=== PATIENT | male | born 1945 | race Caucasian/White ===

== ENCOUNTER → 2023-01-04 08:04 | Outpatient (BNVA) | payer MEDICARE, SELFPAY | PROVIDERS: Family Provider Family Medicine; PCP Family Medicine; Visit Provider Nurse Practitioner Family | DX: C44.519 Basal cell carcinoma of skin of other part of trunk (principal); C44.712 Basal cell carcinoma of skin of right lower limb, including hip; C44.719 Basal cell carcinoma of skin of left lower limb, including hip | CPT/HCPCS: 99204 ==

== ENCOUNTER 2023-01-29 16:06 | Outpatient (CLI) | payer MEDICARE, SELFPAY ==
[2023-01-29 16:57] LABS: Alanine Aminotransferase 16 U/L (0-41); Alkaline Phosphatase 87 U/L (40-130); Anion Gap 13.3 (5-19); Aspartate Amino Transferase 27 U/L (0-40); Blood Urea Nitrogen 28 mg/dL (8-23); Carbon Dioxide 24 mmol/L (22-29); Chloride 108 mmol/L (98-107); Creatine Phosphokinase 221 U/L (39-308); Globulin 2.7 g/dL (1.3-4.6); Glucose 95 mg/dL (65-115); Osmolality Calculated 297 mOsm/kg (285-295); Potassium 4.3 mmol/L (3.5-5.1); Sodium 141 mmol/L (136-145); Total Bilirubin 0.4 mg/dL (0.15-1.2); Total Protein 6.7 g/dL (6.6-8.7)
[2023-01-29 17:03] LABS: Basophils # 0.1 10^3/uL (0.0-0.1); Basophils % 0.7 %; Eosinophils # 0.1 10^3/uL (0.0-0.8); Eosinophils % 1.7 %; Hematocrit 41.6 % (42.0-52.0); Lymphocytes # 1.5 10^3/uL (0.8-4.8); Lymphocytes % 19.8 %; Mean Corpuscular HGB Conc 33.7 g/dL (30.0-36.0); Mean Corpuscular Hemoglobin 32.5 pg (28.0-34.0); Mean Corpuscular Volume 96.5 fl (80-94); Mean Platelet Volume 10.1 fL (7.4-10.4); Monocytes # 0.5 10^3/uL (0.2-0.9); Monocytes % 6.3 %; Neutrophils # 5.38 10^3/uL (1.8-7.7); Neutrophils % 71.1 %; Nucleated Red Blood Cells % 0 %; Platelet Count 246 10^3/cmm (130-400); Red Blood Count 4.31 10^6/uL (4.1-5.3); White Blood Count 7.6 10^3/uL (4.0-10.0)
== END 2023-01-29 16:07 | disposition home or self-care (01) ==
PROVIDERS: PCP Family Medicine; Visit Provider Dermatology
DX: C44.519 Basal cell carcinoma of skin of other part of trunk (principal); I87.2 Venous insufficiency (chronic) (peripheral); L40.0 Psoriasis vulgaris; W89.8XXA Exposure to other man-made visible and ultraviolet light, initial encounter
CPT/HCPCS: 36415; 80053; 82550; 85025; 99214

== ENCOUNTER 2023-03-13 12:22 | Emergency (ER) | payer MEDICARE, SELFPAY ==
[2023-03-13 12:33] VITALS: BP 128/80; PULSE 79; RESP 16; O2SAT 98; BMI 22.8
--- NOTE | 2023-03-13 12:51 | ED_ITS ---
HPI - Wound/Laceration General: Chief Complaint: Wound/Laceration Stated Complaint: lip lac Time Seen by Provider: 03/13/23 12:45 Source: patient Mode of arrival: ambulatory Limitations: no limitations History of Present Illness: Patient is a nice 78-year-old male who presents to ED today for evaluation of a lip laceration. Patient states just prior to arrival he tripped and fell and struck his lip on the floor. Last tetanus is unknown. Denies any dental injuries. He denies LOC. He is not having a headache or neck pain. He is not on anticoagulation. Onset (ago): hour(s) Location: face (lip) Place: home Patient tetanus UTD: No Context: accidental Associated symptoms: Reports no associated symptoms; Denies nausea or vomiting Review of Systems Eyes: Denies: change in vision, blurry vision, floaters or seeing flashes ENMT: Reports: other (lip laceration) Card: Denies: chest pain, palpitations or lightheadedness Resp: Denies: dyspnea GI: Denies: nausea or vomiting Musc: Denies: neck pain Neuro: Denies: headache(s), numbness in extremities, weakness in extremities, sensory changes, difficulty walking, frequent falls, dizziness or confusion Physical Exam Const: COMMON NORMALS: no acute distress, average body habitus, patient oriented x3, no limitations, healthy appearing, alert and well nourished GENERAL APPEARANCE: cooperative ORIENTATION/CONSCIOUSNESS: Yes awake, Yes oriented to person, Yes oriented to place and Yes oriented to time HENMT: COMMON NORMALS: normocephalic and atraumatic HEAD & SCALP: normal to inspection, normocephalic and atraumatic FACE & SINUS: normal facial exam MOUTH: other (no dental injuries noted; few small puncture prince lower inner lip ) MOUTH IMAGES: 1. gaping laceration noted to lower dry vermilion; 1.25cm Eye: GENERAL EYE: appearance normal, both eyes and all related structures Neck/C-Spine: COMMON NORMALS: full ROM CERVICAL SPINE: No Cervical spine tenderness Neuro: COTY COMA SCALE: document GCS findings Coty coma scale eye opening: Spontaneous Coty coma scale verbal response: Orientated [place] coma scale motor response: Obey commands Coty coma scale total score: 15 COMMON NORMALS: patient oriented x3, CN's II-XII intact bilaterally, moves all extremities, no focal motor deficits, no sensory deficits noted and gait normal SENSORIUM/ORIENTATION: Yes alert, Yes oriented to person, Yes oriented to place and Yes oriented to time Procedures Laceration Laceration 1: Site: lip Size (cm): 1.25 Description: linear Depth: simple, single layer Local Anesthetic: lidocaine 1% Amount of anesthesia used (mL): 0.75 Pre-repair: wound explored and irrigated extensively Skin layer closed with: other (chromic gut) Size (cm): 5-0 Number of sutures: 3 Technique: simple, interrupted Course Vital Signs: Vital signs: Vital Signs Pulse Rate 79 03/13/23 12:33 Respiratory Rate 16 03/13/23 12:33 Blood Pressure 128/80 03/13/23 12:33 Pulse Oximetry 98 03/13/23 12:33 Oxygen Delivery Me thod Room Air 03/13/23 12:33 MDM - Wound/Laceration Medical Decision Making Patient with a wound to the lower dry vermilion that was gaping. This was repaired as documented. Cosmetic outcome was good. He has a few small lower wet vermilion puncture wounds that do not require repair. He will be placed on antibiotics. Sutures will need to be removed in 5 to 7 days. Return ED precautions given. Wound care/infection precautions discussed. Discharge Plan Discharge Patient Disposition: Home Clinical Impression: Laceration of lip Qualifiers: Encounter type: initial encounter Qualified Code(s): S01.511A - Laceration without foreign body of lip, initial encounter Condition: Stable Prescriptions: New amoxicillin-pot clavulanate 875-125 mg tablet 1 tab PO BID Qty: 14 0RF Discharge Orders: Discharge ED (Routine); Ordered 03/13/23 Ordered By: Gladis Bella Referrals: Dianna Piper DO [Primary Care Provider] - Patient Instructions: Laceration (DC) Activity Restrictions/Additional Instructions: Keep wound/laceration clean with warm soap and water twice daily. Monitor for signs of infection such as redness, swelling, increased pain, or drainage. Please seek medical re-evaluation if these occur. If you received sutures today these will need to be removed (unless you were told by the provider that they are absorbable). The provider should have discussed with you the length of time until removal-5 TO 7 DAYS. You may return to the emergency department for this service. Rinse mouth with water every time after eating. Coding Level of Care Code ED Psychiatric Aides Teacher for Chg Fwd
[2023-03-13] MEDS: lidocaine 1% INJ 10 mL (per mL) INJECTION (13:52)
[2023-03-13] MEDS: tetanus-dipt-pertussis 0.5 mL SDV IM (13:52)
== END 2023-03-13 14:05 | disposition home or self-care (01) ==
PROVIDERS: Emergency Provider Physician Assistant; PCP Family Medicine
DX: S01.511A Laceration without foreign body of lip, initial encounter (principal); W01.0XXA Fall on same level from slipping, tripping and stumbling without subsequent striking against object, initial encounter
CPT/HCPCS: 90471; 90715; 99283

== ENCOUNTER 2023-04-01 16:40 | Outpatient (CLI) | payer MEDICARE, SELFPAY ==
--- NOTE | 2023-04-01 16:47 | XRR_ITS ---
PROCEDURE INFORMATION: Exam: XR Chest Exam date and time: 04/01/2023 4:53 PM Age: 78 years old Clinical indication: Shortness of breath; Patient HX: HX if skin cancer; Additional info: SOB TECHNIQUE: Imaging protocol: Radiologic exam of the chest. Views: 2 views. COMPARISON: No relevant prior studies available. FINDINGS: Lungs: The lungs are hyperinflated with probable emphysema. The lungs are clear. No consolidation. Pleural spaces: Unremarkable. No pleural effusion. No pneumothorax. Heart/Mediastinum: Unremarkable. No cardiomegaly. Bones/joints: Mild curvature and degenerative changes of the spine. No acute fracture. XR/XR chest 2V* [id number] IMPRESSION: No acute findings.
== END 2023-04-01 16:41 | disposition home or self-care (01) ==
LOC: RAD 16:43
PROVIDERS: PCP Family Medicine; Visit Provider Dermatology
DX: C44.519 Basal cell carcinoma of skin of other part of trunk (principal)
CPT/HCPCS: 71046; 99213

== ENCOUNTER 2023-05-10 08:55 | Oncology outpatient (recurring) (ONCR) | payer MEDICARE, SELFPAY ==
--- NOTE | 2023-05-02 17:35 | N.ONRAD NP_ITS ---
Radiation Oncology New Patient Visit Patient: Man Colon MR#: [id number] : 1945> Age: 78> Sex: Male> Dictated by: Hang Cochran Date of Service: 05/02/2023 Referring Physician(s) : Dr. 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 Radiotherapy to date: Summary > No prior radiation therapy. Chief Complaint / History of Present Illness: Mr Colon is a 78 yo man who had multiple treatment with light therapy in childhood for psoriasis. He had additional larger field treatment of a similar kind in young adulthood. He has had multiple skin basal carcinomas treated in the past. He now has been seen by Dr. Mabry in follow-up and was offered a trial of Erivedge (vismodegib) which he has declined. Weight appetite and energy level are stable. Current Medications: No oral meds. Allergies: NKDA Medical History: No history of collagen vascular disease. No previous radiation therapy. Surgical History: resection of basal cell carcinomas Family History: Not obtained Social History: x 29 years. 1 son in [place]. He moved here from [place] [place] to here in 2009. Worked for the [employer]. [place] [address] [place] Nonsmoker Current Complaints / Review of Systems: . Vital Signs: Performed on 05/02/2023 2:59 PM BMI - 22.919 kg/m2 (high), Height - 69 in, Weight - 155.2 lbs, Temperature - 98.2 f, Pulse - 81 /min, Respiration - 16 /min, O2 Sat - 98 %, Pain - 0, Fatigue - 0 and BP - 129/ 81 mm(hg). Physical Exam: thin robust in no acute distress. No palpable cervical, supraclavicular or inguinal adenopathy Central lumbar back multinodular minimally ulcerated 2.5 x 3.5 cm rasied lesion Left lateral posterior buttock 8 x 6 cm deeply ulcerated skin lesion. Left post mid thigh 2 x 3 cm domed nearly hemispheric lesion Right post mid thigh 12 x 7 largely flat minimally nodular slightly ulcerated leions. Multiple other small flat to scaled lesion too numerous to count. Atrophic skin changes in left pretibial region with central lesion likely reflecting prior treatment. Performance Status: 0 ??? 1 Pathology: No pathology report available.yet. Impression: Multi centric bulky basal cell carcinomas of skin. Primary radiation to the most significant lesions is reasonable. Tentatively will treat all sites of disease to 50 Gy in 20 fractions. Discussed in detail with patient and spouse. Signed by: 05/02/2023 5:34:09 PM <<Signature on File>> Time spent with patient: CPT Code: CPT Code:
--- NOTE | 2023-05-08 16:22 | ONCRAD TMN_ITS ---
Radiation Oncology Weekly Treatment Management Patient: Darlene Conway MR#: [id number] : 1945 Attending Physician: Hang Cochran Date of Service: 05/08/2023 Referring Physician(s) : Diagnosis: C44.91 - Basal cell carcinoma of skin, unspecified, Diagnosed 05/02/2023 (Active) Radiotherapy to date: Course: E beam 2022, Treatment Site: PTV1, Ref. ID: PTV1, Energy: 6E, Dose/Fx (cGy): 250, #Fx: 20, Dose Correction (cGy): 0, Total Dose (cGy): 250, Start Date: 05/08/2023, Elapsed Days: 0 Course: E beam 2022, Treatment Site: PTV2, Ref. ID: PTV2, Energy: 6E, Dose/Fx (cGy): 250, #Fx: / 20, Dose Correction (cGy): 0, Total Dose (cGy): 250, Start Date: 05/08/2023, Elapsed Days: 0 Course: E beam 2022, Treatment Site: PTV3, Ref. ID: PTV3, Energy: 6E, Dose/Fx (cGy): 250, #Fx: 20, Dose Correction (cGy): 0, Total Dose (cGy): 250, Start Date: 05/08/2023, Elapsed Days: 0 Course: E beam 2022, Treatment Site: PTV4, Ref. ID: PTV4, Energy: 6E, Dose/Fx (cGy): 250, #Fx: / 20, Dose Correction (cGy): 0, Total Dose (cGy): 250, Start Date: 05/08/2023, Elapsed Days: 0 Reason for visit: The patient is being seen today as part of their regularly scheduled weekly on treatment visits to assess for acute toxicities from radiotherapy. Review of Systems: First day of treatment. Active on farm. Vital Signs: Performed on 05/08/2023 2:59 PM BMI - 22.535 kg/m2, Height - 69 in, Weight - 152.6 lbs, Temperature - 97.3 f, Pulse - 74 /min, Respiration - 18 /min, O2 Sat - 97 %, Pain - 0, Fatigue - 0 and BP - 126/ 78 mm(hg). Physical Exam: Imaging: Radiation therapy imaging related to accurate target localization (i.e. KV, MV and CBCT) was reviewed. Appropriate changes, if any, were made to ensure treatment accuracy. Plan: Continue as planned Signed by: Hang Cochran 05/08/2023 4:21:32 PM
== END 2023-05-11 23:59 | disposition home or self-care (01) ==
PROVIDERS: PCP Family Medicine; Visit Provider Radiology Radiation Oncology
DX: Z51.0 Encounter for antineoplastic radiation therapy (principal); C44.519 Basal cell carcinoma of skin of other part of trunk; C44.712 Basal cell carcinoma of skin of right lower limb, including hip; C44.719 Basal cell carcinoma of skin of left lower limb, including hip
CPT/HCPCS: 77290; 77295; 77300; 77334; 77412; 99205

== ENCOUNTER 2023-06-04 14:43 | Oncology outpatient (recurring) (ONCR) | payer MEDICARE, SELFPAY ==
--- NOTE | 2023-05-13 17:34 | ONCRAD TMN_ITS ---
Radiation Oncology Weekly Treatment Management Patient: Man Colon MR#: [id number] : 1945 Attending Physician: Hang Cochran Date of Service: 05/13/2023 Referring Physician(s) : Diagnosis: C44.91 - Basal cell carcinoma of skin, unspecified, Diagnosed 05/02/2023 (Active) Radiotherapy to date: Course: E beam 2022, Treatment Site: PTV1, Ref. ID: PTV1, Energy: 6E, Dose/Fx (cGy): 250, #Fx: 4 / 20, Dose Correction (cGy): 0, Total Dose (cGy): 1,000, Start Date: 05/08/2023, Elapsed Days: 5 Course: E beam 2022, Treatment Site: PTV2, Ref. ID: PTV2, Energy: 6E, Dose/Fx (cGy): 250, #Fx: 4 / 20, Dose Correction (cGy): 0, Total Dose (cGy): 1,000, Start Date: 05/08/2023, Elapsed Days: 5 Course: E beam 2022, Treatment Site: PTV3, Ref. ID: PTV3, Energy: 6E, Dose/Fx (cGy): 250, #Fx: 4 / 20, Dose Correction (cGy): 0, Total Dose (cGy): 1,000, Start Date: 05/08/2023, Elapsed Days: 5 Course: E beam 2022, Treatment Site: PTV4, Ref. ID: PTV4, Dose/Fx (cGy): 250, #Fx: 4 / 20, Dose Correction (cGy): 0, Total Dose (cGy): 1,000, Start Date: 05/08/2023, Elapsed Days: 5 Reason for visit: The patient is being seen today as part of their regularly scheduled weekly on treatment visits to assess for acute toxicities from radiotherapy. Review of Systems: Active eating well. Vital Signs: Performed on 05/13/2023 3:09 PM BMI - 22.89 kg/m2, Height - 69 in, Weight - 155 lbs, Temperature - 96.9 f, Pulse - 85 /min, Respiration - 18 /min, O2 Sat - 94 % (low), Pain - 0, Fatigue - 0 and BP - 125/ 80 mm(hg). Physical Exam: All lesions are now flatter. Granulation tissue base with no exudate. Imaging: Radiation therapy imaging related to accurate target localization (i.e. KV, MV and CBCT) was reviewed. Appropriate changes, if any, were made to ensure treatment accuracy. Plan: Good early response. Continue current skin care. Continue treatment as planned Signed by: Hang Cochran 05/13/2023 5:33:08 PM
--- NOTE | 2023-05-21 15:27 | ONCRAD TMN_ITS ---
Radiation Oncology Weekly Treatment Management Patient: Man Colon MR#: [id number] : 1945 Attending Physician: Hang Cochran Date of Service: 05/21/2023 Referring Physician(s) : Diagnosis: C44.91 - Basal cell carcinoma of skin, unspecified, Diagnosed 05/02/2023 (Active) Radiotherapy to date: Course: E beam 2022, Treatment Site: PTV1, Ref. ID: PTV1, Energy: 6E, Dose/Fx (cGy): 250, #Fx: 10 / 20, Dose Correction (cGy): 0, Total Dose (cGy): 2,500, Start Date: 05/08/2023, Elapsed Days: 13 E beam 2022, Treatment Site: PTV2, Ref. ID: PTV2, Energy: 6E, Dose/Fx (cGy): 250, #Fx: 10 / 20, Dose Correction (cGy): 0, Total Dose (cGy): 2,500, Start Date: 05/08/2023, Elapsed Days: 13 E beam 2022, Treatment Site: PTV3, Ref. ID: PTV3, Energy: 6E, Dose/Fx (cGy): 250, #Fx: 10 / 20, Dose Correction (cGy): 0, Total Dose (cGy): 2,500, Start Date: 05/08/2023, Elapsed Days: 13 E beam 2022, Treatment Site: PTV4, Ref. ID: PTV4, Energy: 6E, Dose/Fx (cGy): 250, #Fx: 10 / 20, Dose Correction (cGy): 0, Total Dose (cGy): 2,500, Start Date: 05/08/2023, Elapsed Days: 13 Reason for visit: The patient is being seen today as part of their regularly scheduled weekly on treatment visits to assess for acute toxicities from radiotherapy. Review of Systems: No interval changes noted. Feeling well. Using Aquaphor and gauze dressing . Minimal increase in pain. Minimal bloody DC. Active and eating well. Vital Signs: Performed on 05/21/2023 2:53 PM BMI - 23.333 kg/m2 (high), Height - 69 in, Weight - 158 lbs, Temperature - 96.9 f, Pulse - 81 /min, Respiration - 16 /min, O2 Sat - 96 %, Pain - 0, Fatigue - 0 and BP - 135/ 73 mm(hg). Physical Exam: Imaging: Radiation therapy imaging related to accurate target localization (i.e. KV, MV and CBCT) was reviewed. Appropriate changes, if any, were made to ensure treatment accuracy. Plan: Good tolerance of treatment. Continue as planned. Signed by: Hang Cochran 05/21/2023 3:26:59 PM Telemedicine Consent Patient seen today via Telemedicine by agreement and consent of patient. Telemedicine technology used during the visit include audio and, as available, review of images. This patient encounter is appropriate and reasonable under the circumstances given the patient???s particular presentation at this time. The patient has been advised of the potential risks and limitations of this mode of treatment (including but not limited to the absence of in-person examination) and has agreed to be treated in a remote fashion in spite of them. Any and all of the patient???s/patient???s family???s questions on this issue have been answered and I have made no promises or guarantees to the patient. The patient has also been advised to contact this office for worsening conditions or problems, and seek emergency medical treatment and/or call 911 if the patient deems either necessary.
--- NOTE | 2023-05-29 08:46 | ONCRAD TMN_ITS ---
Radiation Oncology Weekly Treatment Management Patient: Darlene Conway MR#: [id number] : 1945 Attending Physician: Hang Cochran Date of Service: 05/28/2023 Referring Physician(s) : Diagnosis: C44.91 - Basal cell carcinoma of skin, unspecified, Diagnosed 05/02/2023 (Active) Radiotherapy to date: Course: E beam 2022, Treatment Site: PTV1, Ref. ID: PTV1, Energy: 6E, Dose/Fx (cGy): 250, #Fx: 15 / 20, Dose Correction (cGy): 0, Total Dose (cGy): 3,750, Start Date: 05/08/2023, Elapsed Days: 20 Course: E beam 2022, Treatment Site: PTV2, Ref. ID: PTV2, Energy: 6E, Dose/Fx (cGy): 250, #Fx: 15 / 20, Dose Correction (cGy): 0, Total Dose (cGy): 3,750, Start Date: 05/08/2023, Elapsed Days: 20 Course: E beam 2022, Treatment Site: PTV3, Ref. ID: PTV3, Energy: 6E, Dose/Fx (cGy): 250, #Fx: 15 / 20, Dose Correction (cGy): 0, Total Dose (cGy): 3,750, Start Date: 05/08/2023, Elapsed Days: 20 Course: E beam 2022, Treatment Site: PTV4, Ref. ID: PTV4, Energy: 6E, Dose/Fx (cGy): 250, #Fx: 15 / 20, Dose Correction (cGy): 0, Total Dose (cGy): 3,750, Start Date: 05/08/2023, Elapsed Days: 20 Reason for visit: The patient is being seen today as part of their regularly scheduled weekly on treatment visits to assess for acute toxicities from radiotherapy. Review of Systems: Skin lesions flattening out. Some left thigh pain. Using Aquaphor and gauze. Eating well and active. No change in energy level. Vital Signs: Performed on 05/28/2023 2:57 PM BMI - 23.48 kg/m2 (high), Height - 69 in, Weight - 159.0 lbs, Temperature - 97.0 f, Pulse - 85 /min, Respiration - 16 /min, O2 Sat - 98 %, Pain - 3, Fatigue - 0 and BP - 127/ 79 mm(hg). Physical Exam: Imaging: Radiation therapy imaging related to accurate target localization (i.e. KV, MV and CBCT) was reviewed. Appropriate changes, if any, were made to ensure treatment accuracy. Plan: Good tolerance of treatment. Continue as planned. Signed by: Hang Cochran 05/29/2023 8:45:06 AM Telemedicine Consent Patient seen today via Telemedicine by agreement and consent of patient. Telemedicine technology used during the visit include audio and, as available, review of images. This patient encounter is appropriate and reasonable under the circumstances given the patient???s particular presentation at this time. The patient has been advised of the potential risks and limitations of this mode of treatment (including but not limited to the absence of in-person examination) and has agreed to be treated in a remote fashion in spite of them. Any and all of the patient???s/patient???s family???s questions on this issue have been answered and I have made no promises or guarantees to the patient. The patient has also been advised to contact this office for worsening conditions or problems, and seek emergency medical treatment and/or call 911 if the patient deems either necessary.
--- NOTE | 2023-06-04 15:26 | N.ONRD TS_ITS ---
Radiation Oncology Treatment Management / Summary Patient: Man Colon MR#: [id number] : 1945 Age: 78 Sex: Male Dictated by: Robert Sarkar Date of Service: 06/04/2023 Referring Physician(s) : Diagnosis: C44.91 - Basal cell carcinoma of skin, unspecified, Diagnosed 05/02/2023 (Active) Radiotherapy to Date: Course: E beam 2022, Treatment Site: PTV1, Ref. ID: PTV1, Energy: 6E, Dose/Fx (cGy): 250, #Fx: 20 / 20, Dose Correction (cGy): 0, Total Dose (cGy): 5,000, Start Date: 05/08/2023, End Date: 06/04/2023, Elapsed Days: Course: E beam 2022, Treatment Site: PTV2, Ref. ID: PTV2, Energy: 6E, Dose/Fx (cGy): 250, #Fx: 20 / 20, Dose Correction (cGy): 0, Total Dose (cGy): 5,000, Start Date: 05/08/2023, End Date: 06/04/2023, Elapsed Days: Course: E beam 2022, Treatment Site: PTV3, Ref. ID: PTV3, Energy: 6E, Dose/Fx (cGy): 250, #Fx: 20 / 20, Dose Correction (cGy): 0, Total Dose (cGy): 5,000, Start Date: 05/08/2023, End Date: 06/04/2023, Elapsed Days: Course: E beam 2022, Treatment Site: PTV4, Ref. ID: PTV4, Energy: 6E, Dose/Fx (cGy): 250, #Fx: 20 / 20, Dose Correction (cGy): 0, Total Dose (cGy): 5,000, Start Date: 05/08/2023, End Date: 06/04/2023, Elapsed Days: Clinical Summary: The patient tolerated RT well. At completion of treatment the lesions were noted to have superficial ulceration, with no sign of infection or drainage. The lesions were flattened and patient had covered them with nonstick gauze. Plan: End of treatment today. Continue on the above medication until the skin reaction resolves. Follow up in one month with Dr. Cochran. Signed by: Robert Sarkar>06/04/2023 3:24:47 PM <<Signature on File>>
== END 2023-06-11 23:59 | disposition home or self-care (01) ==
PROVIDERS: PCP Family Medicine; Visit Provider Radiology Radiation Oncology
DX: Z51.0 Encounter for antineoplastic radiation therapy (principal); C44.519 Basal cell carcinoma of skin of other part of trunk; C44.719 Basal cell carcinoma of skin of left lower limb, including hip; C44.712 Basal cell carcinoma of skin of right lower limb, including hip
CPT/HCPCS: 77336; 77412; 99024

== ENCOUNTER → 2023-08-29 13:41 | Outpatient (BNVA) | payer MEDICARE, SELFPAY | PROVIDERS: PCP Family Medicine; Visit Provider Dermatology | DX: D48.5 Neoplasm of uncertain behavior of skin (principal); C44.91 Basal cell carcinoma of skin, unspecified | CPT/HCPCS: 11102; 99213 ==

== ENCOUNTER → 2023-09-10 07:58 | Outpatient (BNVA) | payer MEDICARE, SELFPAY | PROVIDERS: PCP Family Medicine; Visit Provider Dermatology | DX: C44.719 Basal cell carcinoma of skin of left lower limb, including hip (principal) | CPT/HCPCS: 12034; 17313 ==

== ENCOUNTER → 2023-09-19 13:42 | Outpatient (BNVA) | payer MEDICARE, SELFPAY | PROVIDERS: PCP Family Medicine; Visit Provider Dermatology | DX: Z48.817 Encounter for surgical aftercare following surgery on the skin and subcutaneous tissue (principal); L53.8 Other specified erythematous conditions | CPT/HCPCS: 99212 ==

== ENCOUNTER → 2023-09-25 10:03 | Outpatient (BNVA) | payer MEDICARE, SELFPAY | PROVIDERS: PCP Family Medicine; Visit Provider Dermatology | DX: R22.9 Localized swelling, mass and lump, unspecified (principal); Z48.02 Encounter for removal of sutures | CPT/HCPCS: 99212 ==

== ENCOUNTER → 2024-01-28 13:17 | Outpatient (BNVA) | payer MEDICARE, SELFPAY | PROVIDERS: PCP Family Medicine; Visit Provider Dermatology | DX: C44.719 Basal cell carcinoma of skin of left lower limb, including hip (principal); Z85.828 Personal history of other malignant neoplasm of skin | CPT/HCPCS: 99214 ==

== ENCOUNTER → 2024-07-23 13:20 | Outpatient (BNVA) | payer MEDICARE, SELFPAY | PROVIDERS: PCP Family Medicine; Visit Provider Dermatology | DX: I87.2 Venous insufficiency (chronic) (peripheral) (principal); M79.3 Panniculitis, unspecified; L57.8 Other skin changes due to chronic exposure to nonionizing radiation; Z08 Encounter for follow-up examination after completed treatment for malignant neoplasm; Z85.828 Personal history of other malignant neoplasm of skin; C44.519 Basal cell carcinoma of skin of other part of trunk; D48.5 Neoplasm of uncertain behavior of skin; L57.0 Actinic keratosis | CPT/HCPCS: 11102; 17000; 17261; 17262; 17263; 99214 ==

== ENCOUNTER 2024-08-08 13:23 | Emergency (ER) | payer MEDICARE, SELFPAY ==
[2024-08-08 13:42] VITALS: BP 125/77; PULSE 73; RESP 18; TEMP 36.7; O2SAT 97; BMI 22.8
--- NOTE | 2024-08-08 14:44 | ED_ITS ---
HPI - Wound/Laceration General: Chief Complaint: Wound/Laceration Stated Complaint: head injury, bleeding Time Seen by Provider: 08/08/24 14:25 History of Present Illness: Patient is a 79-year-old male that was taking out the trash when the sidewalk dumpster slipped away and then struck him in the head. Patient denies loss of consciousness but had a large laceration to the crown of his head. No active bleeding here. Patient is not anticoagulated. He denies any dizziness, headache, other neurological changes. He is not up-to-date on tetanus Laceration is approximately 3 cm long and shaped as a left angle Related Data Previous Rx's Medication Instructions Recorded amoxicillin 875 mg-potassium 1 tab PO BID #14 tabs 03/13/23 clavulanate 125 mg tablet Allergies Allergy/AdvReac Type Severity Reaction Status Date / Time No Known Allergies Allergy Verified 08/08/24 13:42 Review of Systems General: Reports: 10 or more systems reviewed and unremarkable except in HPI and below PFSH ED PFSH: Social History Smoking and tobacco/nicotine status: never used tobacco/nicotine Physical Exam Const: COMMON NORMALS: no acute distress, patient oriented x3 and alert GENERAL APPEARANCE: cooperative ORIENTATION/CONSCIOUSNESS: Yes awake, Yes oriented to person, Yes oriented to place and Yes oriented to time HENMT: COMMON NORMALS: normocephalic HEAD & SCALP: normocephalic, hematoma and laceration (3 cm to crown, left angle with flap. Full-thickness) FACE & SINUS: normal facial exam MOUTH: Normal oral and palatal mucosa present THROAT: posterior oropharynx normal Eye: COMMON NORMALS: Equal, round and reactive pupils present, EOMs intact bilaterally, conjunctivae normal and no scleral icterus GENERAL EYE: appearance normal, both eyes and all related structures ALIGNMENT: Yes alignment normal PERIORBITAL: periorbital findings normal CONJUNCTIVA: Yes conjunctivae normal PUPIL: Yes Equal, round and reactive pupils present Neck/C-Spine: COMMON NORMALS: full ROM GENERAL: Yes normal visual inspection Chest: COMMONS NORMALS: normal inspection of the chest Breast/axilla inspection: Yes no chest deformity, asymmetry, normal contours, no nodules, masses, tenderness Resp: COMMON NORMALS: normal respiratory effort, No retractions and No use of accessory muscles EFFORT & INSPECTION: Yes able to speak in complete sentences and Yes symmetric chest movement Cardio: COMMON NORMALS: regular rate and Peripheral pulses 2+ throughout RATE: regular rate PERIPHERAL PULSES: Peripheral pulses 2+ throughout Extremity: COMMON NORMALS: normal to inspection GENERAL: Yes normal exam except as noted Neuro: COMMON NORMALS: patient oriented x3 SENSORIUM/ORIENTATION: Yes alert, Yes oriented to person, Yes oriented to place and Yes oriented to time CRANIAL NERVES: Yes CN normal except as noted Psych: COMMON NORMALS: mental status grossly normal, Normal thought process present, cooperative, activity/motor behavior normal, denies homicidal ideation and denies suicidal ideation THOUGHT PROCESS: Normal thought process present Skin: COMMON NORMALS: no rashes or lesions noted, no wounds and turgor normal GENERAL SKIN EXAM: no rashes or lesions noted and turgor normal Procedures Laceration Laceration 1: Site: scalp Side (If applicable): right Size (cm): 3 Description: flap and irregular Depth: simple, single layer and involves muscle layer (Open to skull) Local Anesthetic: lidocaine 1% Amount of anesthesia used (mL): 6 Skin layer closed with: nylon and vicryl (Vicryl for subcutaneous, nylon for skin) Size (cm): 3-0 Number of sutures: 5 Technique: horizontal mattress Subcutaneous layer closed with: vicryl Size: 4-0 Number of sutures: 4 Technique: simple, interrupted Course Vital Signs: Vital signs: Vital Signs Temperature 98.1 F 08/08/24 13:42 Pulse Rate 73 08/08/24 13:42 Respiratory Rate 18 08/08/24 13:42 Blood Pressure 125/77 08/08/24 13:42 Pulse Oximetry 97 08/08/24 13:42 Oxygen Delivery Me thod Room Air 08/08/24 13:42 MDM - Wound/Laceration Medical Decision Making Patient presents to the emergency department with laceration to the scalp. He was struck in the head by a plastic trash can but did not lose consciousness. He underwent a CT of the head which reveals no acute finding. Updated his tetanus Laceration repair. Please see procedure note. Sutures out in 10 to 12 days. Keep the wound clean and dry. No hats. Soap and water to the area and pat dry. No rubbing or scrubbing Lab Data Radiology Impressions Head CT 08/08/24 14:44 IMPRESSION: No acute intracranial abnormality. All radiology interpretation(s) finalized by discharge Discharge Plan Discharge Patient Disposition: Home Clinical Impression: Laceration, Hematoma Condition: Stable Prescriptions: No Action amoxicillin-pot clavulanate 875-125 mg tablet 1 tab PO BID Qty: 14 0RF Discharge Orders: Discharge ED (Routine); Ordered 08/08/24 Ordered By: Melvin Turner Referrals: Dianna Piper, [Primary Care Provider] - Discharge Diet: Advance as tolerated Discharge Activity: Resume usual activity Patient Instructions: Laceration (ED), Opioid Safety, Pain Management Activity Restrictions/Additional Instructions: Your head CAT scan was normal. Please keep the wound clean and dry. Use soap and water and pat dry. Do not submerge the wound in water. Sutures will come out in 12 days. This can be done in your primary care office or here in the emergency d epartment. Your tetanus was updated. Coding Level of Care Code ED [employer] for Maday Sesay
--- NOTE | 2024-08-08 14:44 | CTR_ITS ---
PROCEDURE INFORMATION: Exam: CT Head Without Contrast Exam date and time: 08/08/2024 3:01 PM Age: 79 years old Clinical indication: Injury or trauma; Fall; Blunt trauma (contusions or hematomas); Without loss of consciousness; Injury details: PT presents to ED C/O lac to forehead. PT fell and got hit in the head by a trashcan. There is open lac to R forehead, bleeding controlled. Dressing applied in triage. PT is not on anticoagulation. PT did not have loc. ; Additional info: Head trauma TECHNIQUE: Imaging protocol: Computed tomography of the head without contrast. Radiation optimization: All CT scans at this facility use at least one of these dose optimization techniques: automated exposure control; mA and/or kV adjustment per patient size (includes targeted exams where dose is matched to clinical indication); or iterative reconstruction. COMPARISON: No relevant prior studies available. RADIATION DOSE METRICS: Total DLP (mGy-cm): 1154.14 FINDINGS: Brain: No hemorrhage. No edema. Mild diffuse cerebral atrophy and sequela of chronic small vessel ischemic disease. No mass effect. Cerebral ventricles: No ventriculomegaly. Paranasal sinuses: Visualized sinuses are unremarkable. No fluid levels. Mastoid air cells: Visualized mastoid air cells are well aerated. Bones: Unremarkable. No acute fracture. Soft tissues: Forehead laceration/contusion. CT/CT head wo con* [id number] IMPRESSION: No acute intracranial abnormality.
[2024-08-08] MEDS: tetanus-dipt-pertussis 0.5 mL SDV IM (14:54)
[2024-08-08] MEDS: lidocaine 1% 10 ML INJ INJECTION (14:54)
[2024-08-08 16:37] VITALS: BP 123/71; PULSE 70; O2SAT 99
== END 2024-08-08 16:38 | disposition home or self-care (01) ==
PROVIDERS: Emergency Provider Nurse Practitioner; PCP Family Medicine
DX: S01.81XA Laceration without foreign body of other part of head, initial encounter (principal); W22.8XXA Striking against or struck by other objects, initial encounter
CPT/HCPCS: 13121; 70450; 90471; 90715; 99284

== ENCOUNTER → 2025-02-02 15:20 | Outpatient (BNVA) | payer MEDICARE, SELFPAY | PROVIDERS: PCP Family Medicine; Visit Provider Dermatology | DX: C44.719 Basal cell carcinoma of skin of left lower limb, including hip (principal); C44.519 Basal cell carcinoma of skin of other part of trunk; C44.712 Basal cell carcinoma of skin of right lower limb, including hip; Z08 Encounter for follow-up examination after completed treatment for malignant neoplasm | CPT/HCPCS: 99214 ==

== ENCOUNTER → 2025-06-07 08:47 | Outpatient (BNVA) | payer MEDICARE, SELFPAY | PROVIDERS: PCP Family Medicine; Visit Provider Dermatology | DX: C44.719 Basal cell carcinoma of skin of left lower limb, including hip (principal); C44.519 Basal cell carcinoma of skin of other part of trunk; C44.712 Basal cell carcinoma of skin of right lower limb, including hip; Z08 Encounter for follow-up examination after completed treatment for malignant neoplasm; Z85.828 Personal history of other malignant neoplasm of skin | CPT/HCPCS: 99214 ==